=== PATIENT | female | born 1945 | race Caucasian/White ===

== ENCOUNTER 2021-08-03 22:53 | Inpatient (IN) ==
[2021-08-03] MEDS ORDERED: Isovue-370 500 ML BOTTLE IVP ONE (23:27)
[2021-08-03] MEDS ORDERED: 0.9 % Sodium Chloride 1,000 ML IVC ONE (23:28)
[2021-08-03] MEDS ORDERED: Morphine Sulfate 2 MG/ML SYRINGE IVP ONE (23:28)
[2021-08-03] MEDS ORDERED: Ondansetron 4 MG/2 ML VIAL IVP ONE (23:28)
[2021-08-03 23:57] LABS: Basophils % 0.2 %; Eosinophils % 0.1 %; Hematocrit 33.5 % (35.3-44.9); Hemoglobin 10.2 g/dL (11.5-15.4); Immature Granulocytes % 0.9 % (0-4); Lymphocytes # 0.8 K/mcL (0.6-4.6); Lymphocytes % 7.1 %; Mean Corpuscular HGB Conc 30.4 g/dL (31.6-35.5); Mean Corpuscular Hemoglobin 24.6 pg (28.0-33.3); Mean Corpuscular Volume 80.7 fL (83.0-100.0); Monocytes # 1.2 K/mcL (0.0-1.3); Monocytes % 11.6 %; Neutrophils # 8.4 K/mcL (1.6-8.9); Platelet Count 483 K/mcL (140-400); Red Blood Count 4.15 M/mcL (3.82-4.97); Red Cell Distribution Width 20.6 % (11.5-14.5); Segmented Neutrophils % 80.1 %; White Blood Count 10.5 K/mcL (4.3-11.1)
[2021-08-04 00:56] LABS: Alanine Aminotransferase 26 Units/L (7-52); Albumin 3.4 g/dL (3.5-5.7); Alkaline Phosphatase 204 Units/L (34-104); Aspartate Amino Transferase 34 Units/L (13-39); BUN/Creatinine Ratio 23 (6-26); Bilirubin,Total 0.5 mg/dL (0.3-1.0); Blood Urea Nitrogen 15 mg/dL (8-23); Calcium 9.8 mg/dL (8.6-10.3); Carbon Dioxide 30 mEq/L (23-29); Chloride 94 mEq/L (98-107); Globulin 3.5 g/dL (2.4-3.5); Glucose 136 mg/dL (70-105); Osmolality,Calculated 285 (280-300); Potassium 3.3 mEq/L (3.5-5.1); Sodium 136 mEq/L (136-145); Total Protein 6.9 g/dL (6.4-8.9); eGFR For African Americans > 60 (> 60); eGFR For Non-African Americans > 60 (> 60)
[2021-08-04 01:09] LABS: Bilirubin,Urine Negative (Negative); Blood,Urine Negative (Negative); Clarity,Urine Clear (Clear); Color,Urine Light-Yellow (Yellow); Glucose,Urine (UA) Normal (Normal); Ketones,Urine 10 mg/dL (Negative); Leukocyte Esterase,Urine Negative (Negative); Nitrite,Urine Negative (Negative); Protein,Urine Negative (Neg-Trace); Specific Gravity,Urine 1.008 (1.010-1.025); Urobilinogen,Urine Normal (Normal)
[2021-08-04] MEDS ORDERED: cefTRIAXone 1,000 MG in 0.9 % Sodium Chloride Mini Bag 100 ML IVPB ONE ×2 (02:18→02:34)
[2021-08-04] MEDS ORDERED: Melatonin 3 MG TABLET PO PRN (02:30)
[2021-08-04] MEDS ORDERED: Ondansetron ODT 4 MG TAB.RAPDIS SL PRN (02:30)
[2021-08-04] MEDS ORDERED: Naloxone 0.4 MG/ML INJ IVP PRN (02:30)
[2021-08-04] MEDS ORDERED: Morphine Sulfate 2 MG/ML SYRINGE IVP ONE (03:59)
[2021-08-04] MEDS: 0.9 % Sodium Chloride 1,000 ML IVC SCH ×2 (04:13→19:33)
[2021-08-04] MEDS: *HR* OxyCODONE/APAP 10/325 TABLET PO PRN ×2 (14:21→22:02)
[2021-08-05 04:21] LABS: Basophils % 0.2 %; Eosinophils % 0.2 %; Hematocrit 29.6 % (35.3-44.9); Immature Granulocytes % 0.7 % (0-4); Lymphocytes # 1.1 K/mcL (0.6-4.6); Lymphocytes % 9.8 %; Mean Corpuscular HGB Conc 30.4 g/dL (31.6-35.5); Mean Corpuscular Hemoglobin 24.6 pg (28.0-33.3); Mean Corpuscular Volume 80.9 fL (83.0-100.0); Monocytes # 1.3 K/mcL (0.0-1.3); Monocytes % 11.4 %; Neutrophils # 8.5 K/mcL (1.6-8.9); Platelet Count 461 K/mcL (140-400); Red Blood Count 3.66 M/mcL (3.82-4.97); Red Cell Distribution Width 20.7 % (11.5-14.5); Segmented Neutrophils % 77.7 %
[2021-08-05] MEDS ORDERED: Morphine Sulfate Oral CONC 10 MG/0.5 ML ORAL.SYG SL ONE (04:33)
[2021-08-05 04:38] LABS: Alanine Aminotransferase 23 Units/L (7-52); Albumin 3.1 g/dL (3.5-5.7); Alkaline Phosphatase 229 Units/L (34-104); Aspartate Amino Transferase 31 Units/L (13-39); BUN/Creatinine Ratio 17 (6-26); Bilirubin,Total 0.5 mg/dL (0.3-1.0); Blood Urea Nitrogen 9 mg/dL (8-23); Calcium 8.8 mg/dL (8.6-10.3); Carbon Dioxide 28 mEq/L (23-29); Chloride 101 mEq/L (98-107); Globulin 3.1 g/dL (2.4-3.5); Glucose 104 mg/dL (70-105); Magnesium 1.4 mg/dL (1.6-2.6); Osmolality,Calculated 287 (280-300); Potassium 3.2 mEq/L (3.5-5.1); Sodium 139 mEq/L (136-145); Total Protein 6.2 g/dL (6.4-8.9); eGFR For African Americans > 60 (> 60); eGFR For Non-African Americans > 60 (> 60)
[2021-08-05] MEDS: *HR* Enoxaparin 40 MG/0.4 ML SYRINGE SQ SCH (05:00)
[2021-08-05] MEDS: cefTRIAXone 1,000 MG in 0.9 % Sodium Chloride Mini Bag 100 ML IVPB SCH (09:22)
[2021-08-05] MEDS: hydroCHLOROthiazide 25 MG TABLET PO SCH (09:27)
[2021-08-05] MEDS: amLODIPine 5 MG TABLET PO SCH ×2 (09:27→09:31)
[2021-08-05] MEDS ORDERED: *HR* Metoprolol 5 MG/5 ML VIAL IVP ONE (10:06)
[2021-08-05] MEDS ORDERED: Ondansetron 4 MG/2 ML VIAL IVP PRN (10:07)
[2021-08-05] MEDS: *HR* OxyCODONE ER (12 HR) 10 MG TABLET PO SCH (15:58)
[2021-08-05] MEDS: polyethylene glycoL 3350 17 GM POWD.PACK PO SCH ×2 (16:02→21:02)
[2021-08-05] MEDS ORDERED: Lactulose Oral Soln 20 GM/30 ML UDC PO ONE (16:56)
[2021-08-05] MEDS ORDERED: polyethylene glycoL 3350 17 GM POWD.PACK PO SCH (21:00)
[2021-08-06] MEDS: *HR* OxyCODONE ER (12 HR) 10 MG TABLET PO SCH ×3 (01:49→15:29)
[2021-08-06] MEDS: *HR* Enoxaparin 40 MG/0.4 ML SYRINGE SQ SCH (06:06)
[2021-08-06 06:28] LABS: Basophils % 0.2 %; Eosinophils % 0.1 %; Hematocrit 34.3 % (35.3-44.9); Hemoglobin 10.5 g/dL (11.5-15.4); Immature Granulocytes % 0.7 % (0-4); Lymphocytes # 1.1 K/mcL (0.6-4.6); Lymphocytes % 9.9 %; Mean Corpuscular HGB Conc 30.6 g/dL (31.6-35.5); Mean Corpuscular Hemoglobin 25.2 pg (28.0-33.3); Mean Corpuscular Volume 82.3 fL (83.0-100.0); Mean Platelet Volume 9.3 fL (9.4-12.4); Monocytes # 1.3 K/mcL (0.0-1.3); Neutrophils # 8.9 K/mcL (1.6-8.9); Platelet Count 541 K/mcL (140-400); Red Blood Count 4.17 M/mcL (3.82-4.97); Red Cell Distribution Width 20.8 % (11.5-14.5); Segmented Neutrophils % 78.1 %; White Blood Count 11.4 K/mcL (4.3-11.1)
[2021-08-06 06:52] LABS: BUN/Creatinine Ratio 22 (6-26); Blood Urea Nitrogen 13 mg/dL (8-23); Calcium 9.4 mg/dL (8.6-10.3); Carbon Dioxide 30 mEq/L (23-29); Chloride 97 mEq/L (98-107); Glucose 93 mg/dL (70-105); Magnesium 1.7 mg/dL (1.6-2.6); Osmolality,Calculated 288 (280-300); Phosphorous 3.4 mg/dL (2.7-4.5); Potassium 2.9 mEq/L (3.5-5.1); Sodium 139 mEq/L (136-145); eGFR For African Americans > 60 (> 60); eGFR For Non-African Americans > 60 (> 60)
[2021-08-06] MEDS: amLODIPine 5 MG TABLET PO SCH (07:57)
[2021-08-06] MEDS: Mirtazapine 15 MG TABLET PO SCH (07:57)
[2021-08-06] MEDS: Gabapentin 100 MG CAPSULE PO SCH ×3 (07:57→20:00)
[2021-08-06] MEDS: Folic Acid 1 MG TABLET PO SCH (07:57)
[2021-08-06] MEDS: polyethylene glycoL 3350 17 GM POWD.PACK PO SCH ×3 (07:58→20:00)
[2021-08-06] MEDS: hydroCHLOROthiazide 25 MG TABLET PO SCH (07:58)
[2021-08-06] MEDS: 0.9 % Sodium Chloride 1,000 ML IVC SCH ×2 (07:58→17:52)
[2021-08-06] MEDS: cefTRIAXone 1,000 MG in 0.9 % Sodium Chloride Mini Bag 100 ML IVPB SCH (10:03)
[2021-08-06] MEDS ORDERED: Methylnaltrexone 12 MG/0.6 ML SYRINGE SQ ONE (14:58)
[2021-08-07] MEDS: *HR* OxyCODONE ER (12 HR) 10 MG TABLET PO SCH ×3 (00:15→15:45)
[2021-08-07] MEDS: 0.9 % Sodium Chloride 1,000 ML IVC SCH ×2 (04:49→16:49)
[2021-08-07 05:28] LABS: Basophils % 0.3 %; Eosinophils % 0.2 %; Hematocrit 30.5 % (35.3-44.9); Hemoglobin 9.4 g/dL (11.5-15.4); Lymphocytes # 1.1 K/mcL (0.6-4.6); Lymphocytes % 11.2 %; Mean Corpuscular HGB Conc 30.8 g/dL (31.6-35.5); Mean Corpuscular Hemoglobin 25.2 pg (28.0-33.3); Mean Corpuscular Volume 81.8 fL (83.0-100.0); Mean Platelet Volume 9.1 fL (9.4-12.4); Monocytes # 1.4 K/mcL (0.0-1.3); Monocytes % 13.9 %; Neutrophils # 7.1 K/mcL (1.6-8.9); Platelet Count 441 K/mcL (140-400); Red Blood Count 3.73 M/mcL (3.82-4.97); Red Cell Distribution Width 20.3 % (11.5-14.5); Segmented Neutrophils % 73.4 %; White Blood Count 9.7 K/mcL (4.3-11.1)
[2021-08-07 05:42] LABS: BUN/Creatinine Ratio 18 (6-26); Blood Urea Nitrogen 10 mg/dL (8-23); Calcium 8.5 mg/dL (8.6-10.3); Carbon Dioxide 28 mEq/L (23-29); Chloride 99 mEq/L (98-107); Glucose 98 mg/dL (70-105); Magnesium 1.4 mg/dL (1.6-2.6); Osmolality,Calculated 281 (280-300); Phosphorous 3.1 mg/dL (2.7-4.5); Potassium 3.2 mEq/L (3.5-5.1); Sodium 136 mEq/L (136-145); eGFR For African Americans > 60 (> 60); eGFR For Non-African Americans > 60 (> 60)
[2021-08-07] MEDS: *HR* Enoxaparin 40 MG/0.4 ML SYRINGE SQ SCH (05:51)
[2021-08-07] MEDS: amLODIPine 5 MG TABLET PO SCH (07:36)
[2021-08-07] MEDS: hydroCHLOROthiazide 25 MG TABLET PO SCH (07:36)
[2021-08-07] MEDS: Folic Acid 1 MG TABLET PO SCH (07:36)
[2021-08-07] MEDS: Mirtazapine 15 MG TABLET PO SCH (07:36)
[2021-08-07] MEDS: cefTRIAXone 1,000 MG in 0.9 % Sodium Chloride Mini Bag 100 ML IVPB SCH (07:37)
[2021-08-07] MEDS: Gabapentin 100 MG CAPSULE PO SCH ×3 (07:37→20:48)
[2021-08-07] MEDS: polyethylene glycoL 3350 17 GM POWD.PACK PO SCH ×3 (07:43→20:48)
[2021-08-07] MEDS: Potassium Chloride Elixir 20 MEQ/15 ML UDC PO SCH (08:24)
[2021-08-07] MEDS ORDERED: *HR* Metoprolol 5 MG/5 ML VIAL IVP ONE (19:59)
[2021-08-08] MEDS: *HR* OxyCODONE ER (12 HR) 10 MG TABLET PO SCH ×4 (01:39→23:43)
[2021-08-08] MEDS: 0.9 % Sodium Chloride 1,000 ML IVC SCH ×2 (02:33→16:21)
[2021-08-08 02:58] LABS: BUN/Creatinine Ratio 15 (6-26); Blood Urea Nitrogen 7 mg/dL (8-23); Calcium 7.9 mg/dL (8.6-10.3); Carbon Dioxide 24 mEq/L (23-29); Chloride 98 mEq/L (98-107); Glucose 80 mg/dL (70-105); Magnesium 1.4 mg/dL (1.6-2.6); Osmolality,Calculated 273 (280-300); Phosphorous 2.9 mg/dL (2.7-4.5); Potassium 3.1 mEq/L (3.5-5.1); Sodium 133 mEq/L (136-145); eGFR For African Americans > 60 (> 60); eGFR For Non-African Americans > 60 (> 60)
[2021-08-08] MEDS: *HR* Enoxaparin 40 MG/0.4 ML SYRINGE SQ SCH (05:47)
[2021-08-08] MEDS ORDERED: Potassium Chloride Elixir 20 MEQ/15 ML UDC PO ONE (07:20)
[2021-08-08] MEDS: Potassium Chloride Elixir 20 MEQ/15 ML UDC PO SCH (08:35)
[2021-08-08] MEDS: Mirtazapine 15 MG TABLET PO SCH (08:37)
[2021-08-08] MEDS: Gabapentin 100 MG CAPSULE PO SCH ×3 (08:37→20:01)
[2021-08-08] MEDS: Folic Acid 1 MG TABLET PO SCH (08:37)
[2021-08-08] MEDS: polyethylene glycoL 3350 17 GM POWD.PACK PO SCH (08:39)
[2021-08-08] MEDS: amLODIPine 5 MG TABLET PO SCH (08:39)
[2021-08-08 08:54] LABS: Basophils % 0.2 %; Eosinophils % 0.2 %; Hematocrit 28.6 % (35.3-44.9); Hemoglobin 8.6 g/dL (11.5-15.4); Lymphocytes # 1.1 K/mcL (0.6-4.6); Lymphocytes % 9.5 %; Mean Corpuscular HGB Conc 30.1 g/dL (31.6-35.5); Mean Corpuscular Hemoglobin 24.6 pg (28.0-33.3); Mean Corpuscular Volume 81.9 fL (83.0-100.0); Mean Platelet Volume 9.2 fL (9.4-12.4); Monocytes # 1.4 K/mcL (0.0-1.3); Monocytes % 11.8 %; Neutrophils # 9.3 K/mcL (1.6-8.9); Platelet Count 401 K/mcL (140-400); Red Blood Count 3.49 M/mcL (3.82-4.97); Red Cell Distribution Width 20.2 % (11.5-14.5); Segmented Neutrophils % 77.3 %
[2021-08-08] MEDS: *HR* OxyCODONE/APAP 10/325 TABLET PO PRN (11:10)
[2021-08-09] MEDS: 0.9 % Sodium Chloride 1,000 ML IVC SCH ×2 (02:00→20:14)
[2021-08-09] MEDS: *HR* OxyCODONE/APAP 10/325 TABLET PO PRN ×2 (03:13→12:06)
[2021-08-09] MEDS: *HR* Enoxaparin 40 MG/0.4 ML SYRINGE SQ SCH (05:09)
[2021-08-09 07:05] LABS: Basophils % 0.1 %; Eosinophils # 0.1 K/mcL (0.0-0.6); Eosinophils % 0.5 %; Hematocrit 26.1 % (35.3-44.9); Hemoglobin 7.9 g/dL (11.5-15.4); Immature Granulocytes % 1.6 % (0-4); Lymphocytes # 0.8 K/mcL (0.6-4.6); Lymphocytes % 7.7 %; Mean Corpuscular HGB Conc 30.3 g/dL (31.6-35.5); Mean Corpuscular Hemoglobin 25.4 pg (28.0-33.3); Mean Corpuscular Volume 83.9 fL (83.0-100.0); Mean Platelet Volume 9.5 fL (9.4-12.4); Monocytes # 1.2 K/mcL (0.0-1.3); Monocytes % 12.1 %; Platelet Count 393 K/mcL (140-400); Red Blood Count 3.11 M/mcL (3.82-4.97); White Blood Count 10.2 K/mcL (4.3-11.1)
[2021-08-09 07:23] LABS: BUN/Creatinine Ratio 17 (6-26); Blood Urea Nitrogen 9 mg/dL (8-23); Calcium 8.3 mg/dL (8.6-10.3); Carbon Dioxide 25 mEq/L (23-29); Chloride 102 mEq/L (98-107); Glucose 85 mg/dL (70-105); Magnesium 1.6 mg/dL (1.6-2.6); Osmolality,Calculated 278 (280-300); Phosphorous 3.2 mg/dL (2.7-4.5); Potassium 3.4 mEq/L (3.5-5.1); Sodium 135 mEq/L (136-145); eGFR For African Americans > 60 (> 60); eGFR For Non-African Americans > 60 (> 60)
[2021-08-09] MEDS: amLODIPine 5 MG TABLET PO SCH (09:24)
[2021-08-09] MEDS: *HR* OxyCODONE ER (12 HR) 10 MG TABLET PO SCH ×2 (09:24→15:59)
[2021-08-09] MEDS: Mirtazapine 15 MG TABLET PO SCH (09:24)
[2021-08-09] MEDS: Gabapentin 100 MG CAPSULE PO SCH ×3 (09:24→22:37)
[2021-08-09] MEDS: Folic Acid 1 MG TABLET PO SCH (09:24)
[2021-08-09] MEDS: polyethylene glycoL 3350 17 GM POWD.PACK PO SCH (09:31)
[2021-08-09] MEDS: Potassium Chloride Elixir 20 MEQ/15 ML UDC PO SCH (09:31)
[2021-08-09] MEDS ORDERED: 0.9 % Sodium Chloride 1,000 ML ONE (12:10)
[2021-08-10] MEDS: *HR* OxyCODONE ER (12 HR) 10 MG TABLET PO SCH ×3 (00:19→16:12)
[2021-08-10] MEDS: *HR* Enoxaparin 40 MG/0.4 ML SYRINGE SQ SCH (06:19)
[2021-08-10] MEDS: polyethylene glycoL 3350 17 GM POWD.PACK PO SCH (09:38)
[2021-08-10] MEDS: Potassium Chloride Elixir 20 MEQ/15 ML UDC PO SCH (09:38)
[2021-08-10] MEDS: Mirtazapine 15 MG TABLET PO SCH (09:40)
[2021-08-10] MEDS: Folic Acid 1 MG TABLET PO SCH (09:40)
[2021-08-10] MEDS: Gabapentin 100 MG CAPSULE PO SCH ×3 (09:40→20:26)
[2021-08-10] MEDS: amLODIPine 5 MG TABLET PO SCH (09:40)
[2021-08-10 17:25] LABS: Influenza A PCR Negative (Negative); Influenza B PCR Negative (Negative); Resp. Syncytial Virus PCR Negative (Negative)
[2021-08-10 17:42] LABS: SARS-CoV-2 by PCR (In House) Negative (Negative)
[2021-08-10] MEDS: *HR* OxyCODONE/APAP 10/325 TABLET PO PRN (20:27)
[2021-08-10 22:14] VITALS: BP 145/72; PULSE 102; TEMP 98.7; O2SAT 96
[2021-08-11] MEDS: *HR* OxyCODONE ER (12 HR) 10 MG TABLET PO SCH (00:06)
== END 2021-08-11 01:30 | DRG 689 ==
LOC: 3ANU 22:53 → EMEROOARM 22:53 → SUATTDRO 08-04 02:34 → 3ANU 08-04 03:27 → SUATTDRO 08-05 12:27
PROVIDERS: ADMIT Family Medicine; ATTEND Family Medicine